=== PATIENT | female | born 1960 | race Caucasian/White ===

== ENCOUNTER → 2017-08-18 | Outpatient (CLI) | payer BC ==
--- NOTE | 2017-08-18 14:37 | RAD ---
FOOT LEFT 2V Clinical Indication: LEFT 5TH TOE PAIN, BRUISING, STUBBED TOE 08/15/2017, DIABETIC Comparison: None. Findings: No displaced fracture or malalignment, although there is some possible cortical incongruency at the base of the fifth proximal phalanx on the AP view. The joint spaces are maintained. Bony mineralization is normal for the patient's age. No significant soft tissue abnormality. No radiopaque foreign body. IMPRESSION: No definite displaced fracture or malalignment, although there is some possible cortical incongruency at the base of the fifth proximal phalanx on the AP view. This is felt to most likely be projectional, but if there is continued concern for fifth digit fracture, consider repeat radiographs with oblique views.
== END | disposition home or self-care (01) ==
LOC: DXRADRC 10:56
PROVIDERS: ATTEND Physician Assistant Medical
DX: M79.675 Pain in left toe(s) (principal); R23.3 Spontaneous ecchymoses
CPT/HCPCS: 73620

== ENCOUNTER → 2018-02-03 | Outpatient (CLI) | payer BC ==
--- NOTE | 2018-02-03 13:11 | RAD ---
Right RIBS, 2 views, 02/03/2018: History: Rib pain, lump No fracture or destructive bony lesion is seen. There is no evidence of underlying pneumothorax, hemothorax or pulmonary infiltrate. IMPRESSION: No significant right rib abnormality is detected.
== END | disposition home or self-care (01) ==
LOC: PMG 11:30
PROVIDERS: ATTEND Nurse Practitioner Family
DX: R07.81 Pleurodynia (principal)
CPT/HCPCS: 71100

== ENCOUNTER → 2019-03-21 | Outpatient (CLI) | payer BC ==
--- NOTE | 2019-03-21 16:04 | RAD ---
Pelvis with left hip, 3 views, 03/21/2019: HISTORY: Hip pain No fracture or dislocation is identified. The hip joint spaces are fairly well preserved with only minimal marginal spurring. The periarticular soft tissues are unremarkable. IMPRESSION: No acute abnormality is detected. Electronically signed by: Cristi Fuentes MD (03/21/2019 4:02 PM) [facility]
== END | disposition home or self-care (01) ==
LOC: PMG 14:16
PROVIDERS: ATTEND Physician Assistant Medical
DX: M76.9 Unspecified enthesopathy, lower limb, excluding foot (principal)
CPT/HCPCS: 73502

== ENCOUNTER 2021-04-23 10:08 | Emergency (ER) | payer BC, OTHER ==
[~2021-04-23] VITALS: Ht 157.5 cm; Wt 71.0 kg
[2021-04-23 10:36] VITALS: BP 132/75
--- NOTE | 2021-04-23 10:44 | PHYS DOC ---
Adult General Chief Complaint Chief Complaint: FINGER INJURY [facility] HPI Patient is a 60-year-old female presenting from work for finger injury. Reports she was filing paperwork and filing cabinet when she reached down and suffered a superficial cut to the distal portion of the left ring finger. Patient reports finger was bleeding but this resolved with pressure after a few minutes. Patient put a Band-Aid on area but later was instructed by her work to be seen and evaluated our facility for potential need of repair and/or antibiotics. She is unsure if she is up-to-date on her tetanus Review of Systems Review of Systems Fourteen body systems of review of systems have been reviewed. See HPI for pertinent positives and negative responses, other askew all other systems are negative, non-pertinent or non-contributory Allergies Allergies Allergies Coded Allergies Type Severity Reaction Last Updated Verified lisinopril Allergy Unknown 04/23/21 Yes Physical Exam Physical Exam Constitutional: Well developed, well nourished, no acute distress, non-toxic appearance. HENT: Normocephalic, atraumatic, bilateral external ears normal, oropharynx moist, no oral exudates, nose normal. Eyes: PERRLA, EOMI, conjunctiva normal, no discharge. Neck: Normal range of motion, no tenderness, supple, no stridor. Cardiovascular: Heart rate regular per monitor Lungs & Thorax: No respiratory distress or accessory muscle use, bilateral chest rise Abdomen: Abdomen soft, non-tender, bowel sounds present in all quadrants, no guarding or rebound, nonacute abdomen. Skin: Warm, dry, no erythema, no rash. Back: No tenderness, no CVA tenderness. Extremities: No tenderness, no cyanosis, no clubbing, ROM intact, no edema. Superficial laceration to distal tip of left ring finger without involvement of nailbed matrix, epidermis is cut without significant involvement of underlying subcutaneous fat, no foreign body Neurologic: Alert and oriented X 3, medial radial and ulnar nerves of bilateral hands intact, normal motor & sensory function, no focal deficits noted. Psychologic: Affect normal, judgement normal, mood normal. Current Patient Data Vital Signs Vital Signs Date Time Temp Pulse Resp B/P (MAP) Pulse Ox O2 Delivery O2 Flow Rate FiO2 04/23/21 10:36 97.7 86 18 132/75 (94) 96 Room Air Vital Signs Date Time Temp Pulse Resp B/P (MAP) Pulse Ox O2 Delivery O2 Flow Rate FiO2 04/23/21 10:36 97.7 86 18 132/75 (94) 96 Room Air EKG EKG [] Radiology/Procedures Radiology/Procedures [] Heart Score C/O Chest Pain: No Risk Factors: Risk Factors: DM, Current or recent (<one month) smoker, HTN, HLP, family history of CAD, obesity. Risk Scores: Risk Factors: DM, Current or recent (<one month) smoker, HTN, HLP, family history of CAD, obesity. Course & Med Decision Making Course & Med Decision Making Discussed with the patient all findings and diagnostic testing. I discussed most likely diagnosis of uncomplicated laceration to distal tip of left ring finger. Patient's tetanus is unknown, this was updated today. Given superficial nature, joint decision was made to irrigate extensively and applied Dermabond versus others repair options such as helen and/or sutures. I also discussed potential need for antibiotics, given superficial nature of laceration, joint decision made to defer with continued good wound hygiene and close outpatient follow-up advised instead. As such, I stressed need for close outpatient follow-up to review today's ER visit. Strict return precautions were also discussed at length with good understanding by patient. Patient voiced understanding and agreement with the plan. Patient knows to come back for repeat evaluation if concerning signs or symptoms present prior to outpatient follow- up. Hemodynamically stable, ambulatory and well-appearing at time of disposition. Dragon Disclaimer Dragon Disclaimer This electronic medical record was generated, in whole or in part, using a voice recognition dictation system. Departure Departure: Impression: Primary Impression: Finger laceration Disposition: HOME / SELF CARE / HOMELESS Condition: STABLE Referrals: ABHIJIT SCHNEIDER (PCP) Patient Instructions: Fingertip Laceration Additional Instructions: You were seen for a laceration. Keep the area clean and dry. Joint decision was made to repair with Dermabond glue after thorough irrigation and update of your tetanus vaccination. You need to contact your primary care physician to review your ER visit today. Return to the ED immediately if you develop any signs of infection like increased pain, redness, fever, or purulent (pus) drainage. Do not take baths, submerge the wound, or use a hot tub until your wound is healed. ROSENDO SALEH DO Apr 23, 2021 10:44
[2021-04-23] MEDS ORDERED: DIPH,PERTUSS(ACELL),TET VAC/PF 0.5 ML SYRINGE. VAX IM ONE (11:00)
== END 2021-04-23 11:09 | disposition home or self-care (01) ==
LOC: ER 10:08
DX: S61.215A Laceration without foreign body of left ring finger without damage to nail, initial encounter (principal); Z88.8 Allergy status to other drugs, medicaments and biological substances; W26.8XXA Contact with other sharp object(s), not elsewhere classified, initial encounter; Y93.89 Activity, other specified; Y92.89 Other specified places as the place of occurrence of the external cause; Y99.8 Other external cause status
CPT/HCPCS: 12001; 90471; 90715; 99283